=== PATIENT | female | born 1995 | race Caucasian/White ===

== ENCOUNTER 2016-12-05 03:34 | Observation (INO) | payer SELFPAY ==
[~2016-12-05] VITALS: Ht 160 cm; Wt 85.3 kg
[2016-12-05 04:17] VITALS: BP 113/64
[2016-12-05] MEDS ORDERED: PREN1TAB80 PO (04:17)
[2016-12-05 04:57] LABS: APPEARANCE,URINE CLOUDY (CLEAR); GLUCOSE, URINE (UA) NEGATIVE (NEGATIVE); KETONES,URINE NEGATIVE (NEGATIVE); LEUKOCYTE ESTERASE ,URINE MODERATE (NEGATIVE); OCCULT BLOOD,URINE NEGATIVE (NEGATIVE); PH,URINE 6.5 (5.0-8.0); PROTEIN,URINE NEGATIVE (NEGATIVE)
[2016-12-05 05:00] LABS: ADD UA MICROSCOPIC YES
[2016-12-05 05:18] LABS: RBC,URINE 0-2 /HPF (0-2)
[2016-12-05 05:19] LABS: SQUAMOUS EPITHELIAL CELL,UR Moderate /LPF (None Seen)
[2016-12-05 05:49] LABS: APPEARANCE,URINE CLEAR (CLEAR); GLUCOSE, URINE (UA) NEGATIVE (NEGATIVE); KETONES,URINE NEGATIVE (NEGATIVE); LEUKOCYTE ESTERASE ,URINE NEGATIVE (NEGATIVE); OCCULT BLOOD,URINE SMALL (NEGATIVE); PROTEIN,URINE NEGATIVE (NEGATIVE)
[2016-12-05 05:51] LABS: ADD UA MICROSCOPIC YES
[2016-12-05 06:48] LABS: SQUAMOUS EPITHELIAL CELL,UR Moderate /LPF (None Seen)
== END 2016-12-05 06:40 | disposition home or self-care (01) ==
LOC: 4S 03:34
PROVIDERS: ADMIT Obstetrics & Gynecology; ATTEND Obstetrics & Gynecology
DX: O42.912 Preterm premature rupture of membranes, unspecified as to length of time between rupture and onset of labor, second trimester (principal); Z3A.20 20 weeks gestation of pregnancy
CPT/HCPCS: 36415; 59025; 76815; 80307 ×8; 81001; 89060; G0378